=== PATIENT | female | born 2005 | race Hispanic/Latino ===

== ENCOUNTER 2024-07-13 19:08 | Emergency (ER) | payer SELFPAY ==
[~2024-07-13] VITALS: Ht 157.5 cm; Wt 92.5 kg
--- NOTE | 2024-07-13 19:38 | ERN ---
ED Note History of Present Illness Stated Complaint: YEAST INFECTION Time Seen by MD: 19:21 Time Seen by Midlevel: 19:21 Dictation: The patient is a 18-year-old female with no past medical history who presents to the emergency department with vaginal bleeding associated with suprapubic abdominal pain onset yesterday. Patient reports that she was treating herself for yeast infection and taking antibiotics from [place]. Denies any . Reports last menstrual period was the end of May. Reports some nausea, denies vomiting or diarrhea, constipation., fevers. Allergies: Coded Allergies: No Known Allergies (Unverified Allergy, Unknown, 07/13/24) Past Medical History RN Note Reviewed/Agreed w/PFSH: Yes Review of System Dictation Constitutional: Negative for fever,chills, and weight loss Eyes: Negative for injury, pain,redness, and discharge ENT: Negative for injury,pain or swelling Cardiovascular: Negative for chest pain, palpitations, and edema Respiratory: Negative for shortness of breath, cough, and wheezing, Abdomen/GI: Negative for vomiting, diarrhea, and constipation positive for abdominal pain, nausea Back: Negative for injury and pain : Negative for injury, and discharge positive for vaginal bleeding MS/Extremity: Negative for injury and deformity Skin: Negative for rash, and discoloration Neuro: Negative for headache, weakness, numbness, tingling, and seizure Psych: Negative for suicide ideation, homicidal ideation, and hallucinations Initial Vital Sign VS Vital Signs Date Time Temp Pulse Resp B/P (MAP) Pulse Ox O2 Delivery O2 Flow Rate FiO2 07/13/24 19:50 98.2 89 20 100 Room Air Physical Exam Dictation Vital Signs reviewed General Appearance: Alert, oriented x 3, no acute distress, well developed, nourished. Head and Face: non-traumatic. Eyes: PERRL, pink conjunctivas, eyelid no trauma, anterior chamber with arcus senilis. Ears: Pinnas intact and no signs of trauma or erythema ear canals clear and no discharge TM no erythema Nose: No discharge, no bleeding. Oropharynx: Mouth normal, tongue pink. pharynx clear,no erythema, tonsils no exudates, no abscesses noted, mucous membrane moist Neck: Supple, non-tender, no thyromegaly, no masses, no JVD, no bruits Breast:Deferred Chest:No tenderness, no crepitus, no paradoxical movement, no retractions Lungs:Clear, well-ventilated, symmetric, no rales, no wheezing, no rhonchi, no stridor, good breath sounds bilaterally Heart: Regular rate, regular rhythm, no murmur, no gallops Vascular: no peripheral edema, Abdomen: Soft, positive bowel sounds, nondistended, no guarding, nontender, no rebound, no masses no hepatomegaly, no splenomegaly, no Whitman's sign, no hernias. Rectal: Deferred Genital: Scant vaginal bleeding in vaginal canal, no external wounds, no foreign objects, Neurological: Normal speech, motor function intact, sensory function intact Musculoskeletal: Neck nontender, full range of motion, back nontender, full range of motion, Extremities: nontender, full range of motion Skin: Color pink, dry, no turgor, no rash, no lacerations, no abrasions, no contusions. Lymphatic: Deferred Results (Laboratory/Radiology) Laboratory/Radiology Laboratory Tests Test 07/13/24 20:17 07/13/24 20:43 Urine Color YELLOW (YELLOW) Urine Appearance CLOUDY (CLEAR) H Urine pH 8.0 (5.0-8.0) Urine Specific [place] 1.026 (1.001-1.031) Urine Protein 20 mg/dL (NEGATIVE) H Urine Glucose (UA) NEGATIVE mg/dL (NEGATIVE) Urine Ketones NEGATIVE mg/dL (NEGATIVE) Urine Occult Blood LARGE (NEGATIVE) H Urine Nitrate NEGATIVE (NEGATIVE) Urine Bilirubin NEGATIVE mg/dL (NEGATIVE) Urine Urobilinogen 2.0 mg/dL (0.2-1.0) H Urine Leukocyte Esterase 500 Nuvia/uL (NEGATIVE) H Urine RBC TNTC /HPF (0-1) H Urine WBC 11-25 /HPF (0-1) H Urine Squamous Epithelial Cells FEW /HPF (0-2) Urine Bacteria RARE /HPF (None Seen) White Blood Count 6.7 K/uL (4.8-10.8) Red Blood Count 3.98 MIL/uL (4.00-5.50) L Hemoglobin 12.5 g/dL (12.0-16.0) Hematocrit 37.0 % (36-48) Mean Corpuscular Volume 93.0 fL (80-100) Mean Corpuscular Hemoglobin 31.4 pg (27.0-33.0) Mean Corpuscular Hemoglobin Concent 33.8 g/dL (32.0-36.0) Red Cell Distribution Width 13.0 % (11.0-15.5) Platelet Count 351 K/uL (130-400) Mean Platelet Volume 10.2 fL (7.5-10.5) Immature Granulocyte % (Auto) 0.1 % (0-1) Neutrophils (%) (Auto) 56.4 % (40.0-77.0) Lymphocytes (%) (Auto) 33.7 % (21.0-51.0) Monocytes (%) (Auto) 5.7 % (3.0-13.0) Eosinophils (%) (Auto) 3.4 % (0.0-8.0) Basophils (%) (Auto) 0.7 % (0.0-5.0) Neutrophils # (Auto) 3.8 K/uL (1.8-7.7) Lymphocytes # (Auto) 2.3 K/uL (1.0-4.8) Monocytes # (Auto) 0.4 K/uL (0.1-1.0) Eosinophils # (Auto) 0.23 K/uL (0.00-0.70) Basophils # (Auto) 0.05 K/uL (0.00-0.20) Absolute Immature Granulocyte (auto 0.01 K/uL (0-1) Nucleated Red Blood Cells 0.0 % (0.0-0.19) Sodium Level 142 mmol/L (136-145) Potassium Level 3.5 mmol/L (3.5-5.1) Chloride Level 106 mmol/L (101-111) Carbon Dioxide Level 31 mmol/L (21-32) Blood Urea Nitrogen 7 mg/dL (7-18) Creatinine 0.7 mg/dL (0.5-1.0) Glomerular Filtration Rate Calc 128 mL/min (>90) Random Glucose 91 mg/dL (70-105) Total Calcium 8.5 mg/dL (8.5-10.1) Serum Test, Qualitative NEGATIVE (NEGATIVE) REASON: vaginal bleeding ORDERING PHYSICIAN: MARGY KUMAR PROCEDURE: PELVCOMP - US PELVIC NON-OB COMP US PELVIC NON-OB COMP HISTORY: vaginal bleeding TECHNIQUE: Real-time pelvic ultrasound was performed. FINDINGS: Uterus measures 8.9 cm and endometrium measures 0.9 cm in thickness. Right ovary measures 2.4 cm and left ovary measures 1.8 cm. No free fluid was seen. IMPRESSION: No adnexal mass is seen. Labs Reviewed?: Yes ED Course ED Course Orders Procedure Category Date Status Time Cbc With Differential LAB 07/13/24 Complete 19:30 Urinalysis Profile LAB 07/13/24 Complete 19:30 Basic Metabolic Panel LAB 07/13/24 Complete 19:30 Acetaminophen 500mg PHA 07/13/24 Complete Tab (Tylenol 500mg T 19:30 Testing, LAB 07/13/24 Complete Serum Hcg 19:30 Culture Urine [id number] 07/13/24 In Process 20:48 Us Pelvic Non-Ob Comp US 07/13/24 Resulted 21:23 Ceftriaxone 1g Vial PHA 07/13/24 Complete (Rocephine 1g Inj) 21:30 Pelvic Exam Set Up CPOE 07/13/24 Transmitted (Er) 21:55 Ceftriaxone 1g Vial PHA 07/13/24 Complete (Rocephine 1g Inj) 22:30 Current Medications Medications (Trade) Dose Ordered Sig/Cheli Route PRN Reason Start Time Stop Time Status Last Admin Dose Admin Acetaminophen (TYLenol 500MG TAB) 1,000 mg ONCE ONCE PO 07/13/24 19:30 07/13/24 19:32 DC 07/13/24 22:11 Ceftriaxone Sodium (ROCEphine 1G INJ) 1 gm ONCE ONCE IM 07/13/24 22:30 07/13/24 22:31 DC 07/13/24 22:20 Ceftriaxone Sodium (ROCEphine 1G INJ) 1 gm ONCE ONCE IVPB 07/13/24 21:30 07/13/24 21:31 DC Vital Signs Date Time Temp Pulse Resp B/P (MAP) Pulse Ox O2 Delivery O2 Flow Rate FiO2 07/13/24 19:50 98.2 89 20 100 Room Air Medical Decision Making MDM The patient is a 18-year-old female with no past medical history who presents to the emergency department with vaginal bleeding associated with suprapubic abdominal pain onset yesterday. Patient reports that she was treating herself for yeast infection and taking antibiotics from [place]. Denies any . Reports last menstrual period was the end of May. Reports some nausea, denies vomiting or diarrhea, constipation., fevers. CBC showed no leukocytosis, no anemia, chemistry showed negative test, no electrolyte imbalance, urinalysis positive for leukocyte esterase. Patient was treated with the antibiotics. Pelvic exam was performed with nurse doug as radio television technical director. Small amount of bleeding noted. Patient reports not saturating any pads in the last hour. Patient instructed to follow up with OBGYN. Patient in no acute distress, patient instructed to return if severe bleeding, dizziness or syncope. Differential diagnosis: UTI, menstrual cycle, , electrolyte imbalance Need for hospitalization: Patient does not meet criteria for hospitalization. There are no social concerns with this patient. DX & DISP Disposition: Discharge Departure Impression: Primary Impression: Vaginal bleeding Additional Impression: UTI (urinary tract infection) Condition: Stable Scripts Nitrofurantoin Monohyd/M-Cryst (Macrobid 100 mg Capsule) 100 Mg Capsule 1 CAP PO BID for 5 Days, #10 CAP 0 Refills Prov: MARGY KUMAR 07/13/24 Additional Instructions: Please follow up with OBGYN as soon as possible. Please return to ER if symptoms worsen. Taking medications as prescribed FOLLOW-UP WITH PRIMARY CARE PROVIDER IN 1 TO 2 DAYS. TAKE MEDICATIONS DIRECTED HERE IN THE EMERGENCY ROOM. OKAY TO CONTINUE HOME MEDICATIONS UNLESS OTHERWISE DISCUSSED DURING YOUR VISIT IN THE EMERGENCY ROOM TODAY. RETURN TO YOUR NEAREST EMERGENCY ROOM IF SYMPTOMS WORSEN OR IF THERE IS NO IMPROVEMENT. CALL 911 IF YOU NEED IMMEDIATE ASSISTANCE. TAKE TYLENOL OR MOTRIN [id number] NEEDED AND IF NO CONTRAINDICATIONS ARE PRESENT. INCREASE ORAL HYDRATION. A WOUND CULTURE OR URINE CULTURE WAS ORDERED HERE IN THE EMERGENCY ROOM DEPARTMENT PLEASE FOLLOW-UP WITH PRIMARY CARE PROVIDER AND ADVISE THEM TO GET REPEAT PORTS FROM OUR FACILITY. IF YOU HAD ANY RAYMOND WRAP/SPLINTS THAT WERE APPLIED HERE, PLEASE DO NOT REMOVE THEM UNTIL YOU SEE YOUR PRIMARY CARE OR SPECIALTY. Referrals: SELF,REFERRAL (PCP) Time of Disposition: 22:39 I have reviewed the case, and I agree with, Diagnosis and Plan MARGY KUMAR Jul 13, 2024 19:38
[2024-07-13 20:41] LABS: APPEARANCE,URINE CLOUDY (CLEAR); BILIRUBIN,URINE NEGATIVE (NEGATIVE); COLOR,URINE YELLOW (YELLOW); GLUCOSE, URINE (UA) NEGATIVE (NEGATIVE); KETONES,URINE NEGATIVE (NEGATIVE); LEUKOCYTE ESTERASE ,URINE 500 Leu/uL (NEGATIVE); NITRATE,URINE NEGATIVE (NEGATIVE); OCCULT BLOOD,URINE LARGE (NEGATIVE); PROTEIN,URINE 20 mg/dL (NEGATIVE)
[2024-07-13 20:48] LABS: ADD UA MICROSCOPIC YES
[2024-07-13 20:50] LABS: BACTERIA,URINE RARE /HPF (None Seen); MUCUS,URINE RARE LPF (None Seen); RBC,URINE TNTC /HPF (0-1); SQUAMOUS EPITHELIAL CELL,UR FEW /HPF (0-2)
[2024-07-13 20:53] LABS: BASOPHILS # (AUTO) 0.05 K/uL (0.00-0.20); BASOPHILS % (AUTO) 0.7 % (0.0-5.0); EOSINOPHILS # (AUTO) 0.23 K/uL (0.00-0.70); EOSINOPHILS % (AUTO) 3.4 % (0.0-8.0); IMMATURE GRANULOCYTE ABSOLUTE 0.01 K/uL (0-1); LYMPHOCYTES # (AUTO) 2.3 K/uL (1.0-4.8); LYMPHOCYTES % (AUTO) 33.7 % (21.0-51.0); MEAN CORPUSCULAR HEMOGLOBIN 31.4 pg (27.0-33.0); MEAN CORPUSCULAR HGB CONC 33.8 g/dL (32.0-36.0); MONOCYTES # (AUTO) 0.4 K/uL (0.1-1.0); MONOCYTES % (AUTO) 5.7 % (3.0-13.0); NEUTROPHILS # (AUTO) 3.8 K/uL (1.8-7.7); NEUTROPHILS % (AUTO) 56.4 % (40.0-77.0); PLATELET COUNT (AUTO) 351 K/uL (130-400); RED BLOOD CELL COUNT(AUTO) 3.98 MIL/uL (4.00-5.50); WHITE BLOOD COUNT (AUTO) 6.7 K/uL (4.8-10.8)
[2024-07-13 21:01] LABS: CREATININE 0.7 mg/dL (0.5-1.0); POTASSIUM 3.5 mmol/L (3.5-5.1)
--- NOTE | 2024-07-13 21:52 | HMCIMG ---
US PELVIC NON-OB COMP HISTORY: vaginal bleeding TECHNIQUE: Real-time pelvic ultrasound was performed. FINDINGS: Uterus measures 8.9 cm and endometrium measures 0.9 cm in thickness. Right ovary measures 2.4 cm and left ovary measures 1.8 cm. No free fluid was seen. IMPRESSION: No adnexal mass is seen.
[2024-07-13] MEDS: cefTRIAXone 1G VIAL IVPB ONE (22:10)
[2024-07-13] MEDS: acetaMINOPHEN 500 MG TABLET PO ONE (22:11)
[2024-07-13] MEDS: cefTRIAXone 1G VIAL IM ONE (22:20)
[2024-07-13] MEDS ORDERED: NITR100C4 PO (22:40)
[2024-07-13 23:12] VITALS: BP 120/57; PULSE 57; RESP 18; TEMP 98.4; O2SAT 98
== END 2024-07-13 23:16 | disposition home or self-care (01) ==
LOC: EDH 19:08
DX: N93.9 Abnormal uterine and vaginal bleeding, unspecified (principal); N39.0 Urinary tract infection, site not specified
CPT/HCPCS: 99285; 76856; 80048; 84703; 85025; 87086; 81001; 36415; 96372; J0696

== ENCOUNTER 2024-12-01 23:54 | Emergency (ER) | payer SELFPAY ==
[~2024-12-01] VITALS: Ht 165.1 cm; Wt 93.4 kg
[~2024-12-01 23:54] MED LIST: NITR100C4 PO
--- NOTE | 2024-12-02 00:28 | ERN ---
General Chief Complaint: Blister/Cold Sore Stated Complaint: C/O BLISTERS, SORES IN MOUTH Time Seen by MD: 00:04 Source: patient History of Present Illness Initial Comments Patient has had an upper respiratory tract infection for 2-3 days. She comes in because he has worsening symptoms with difficulty swallowing difficulty breathing. She also states that she saw a blister deep into her throat when she look into a mirror with a flashlight. Timing/Duration: 24 hours Allergies: Coded Allergies: No Known Allergies (Unverified Allergy, Unknown, 07/13/24) Home Meds Active Scripts Nitrofurantoin Monohyd/M-Cryst (Macrobid 100 mg Capsule) 100 Mg Capsule, 1 CAP PO BID for 5 Days, #10 CAP 0 Refills Prov:MARGY KUMAR PUBLIC AREA ATTENDANT 07/13/24 Past Medical History Past Medical History: No Pertinent History Past Surgical History: None Female( History) LMP: October 28, 2024 Constitutional: (+) chills, (+) fever EENTM: (+) eye pain, (+) blurred vision Respiratory: (+) cough, (+) wheezing Cardiovascular: (-) chest pain, (-) edema, (-) palpitations, (-) syncope, (-) dyspnea on exertion, (-) other documentation Gastrointestinal/Abdominal: (-) nausea, (-) vomiting, (-) diarrhea, (-) abdominal pain, (-) abdominal distention, (-) constipation, (-) rectal bleeding, (-) dark stool/melena, (-) other documentation Musculoskeletal: (-) Neck pain, (-) back pain, (-) Flank Pain, (-) joint pain, (-) joint swelling, (-) muscle pain, (-) muscle stiffness, (-) gout, (-) other documentation Skin: (-) laceration, (-) contusion, (-) abrasion, (-) abscess, (-) rash, (-) change in color, (-) change in hair, (-) change in nails, (-) diaphoresis, (-) dryness, (-) other documentation Physical Exam General Appearance: (+) no apparent distress General Appearance comment Patient appears normal however her voice is extremely soft and has a strained quality to it. Orientation: (+) alert, (+) oriented x 3 Eye: bilateral eye normal inspection, bilateral eye PERRL, bilateral eye EOMI Ear, Nose, Throat: (+) hearing grossly normal, (+) normal ENT inspection, (+) moist mucous membraine Ear, Nose, Throat Comment I looked in to the patient's mouth with an otoscope and I could not see any blisters anywhere. Even with a tongue retracted to either side and tongue depressed with a tongue depressor. The pharynx did appear normal I did not see much erythema or injection. Tonsils did not have erythema and did not have exudate. Neck: (+) normal inspection, (+) supple Respiratory: (+) chest non-tender, (+) lungs clear Heart: (+) regular Vascular: (+) no edema, (+) normal peripheral pulse Gastrointestinal: (+) soft, (+) non-tender, (+) bowel sound present Results Laboratory and Microbiology Lab and Micro Result Laboratory Tests Test 12/02/24 00:38 Influenza Type A Antigen Negative For Type A Influenza Type B Antigen Negative For Type B SARS-CoV-2 Antigen (Rapid) PRESUMPTIVE NEGATIVE Group A Streptococcus Rapid negative (NEGATIVE) MDM I will do nasal swabs throat swabs. Throat swabs are negative for COVID strep and influenza. I gave the patient some Robitussin and Tessalon Perle and she was able to eat drink. I will discharge her from the ED. ED Course Orders Procedure Category Date Status Time Covid19 (Sars Antigen LAB 12/02/24 Complete Rapid) 00:27 Influenza Type A & B, LAB 12/02/24 Complete Rapid 00:27 Rapid (Group A Strep) LAB 12/02/24 Complete 00:27 Guaifenesin-Dm PHA 12/02/24 Complete 200/20mg 10ml 01:30 Benzonatate 100 Mg PHA 12/02/24 Complete Capsule (Tessalon 100 01:30 Current Medications Medications (Trade) Dose Ordered Sig/Cheli Route PRN Reason Start Time Stop Time Status Last Admin Dose Admin Benzonatate (Tessalon 100mg Caps) 100 mg ONCE ONCE PO 12/02/24 01:30 12/02/24 01:31 DC 12/02/24 01:24 Guaifenesin/ Dextromethorphan (RobiTUSSin DM 200/20MG 10ML) 15 ml ONCE ONCE PO 12/02/24 01:30 12/02/24 01:31 DC 12/02/24 01:25 Vital Signs Date Time Temp Pulse Resp B/P (MAP) Pulse Ox O2 Delivery O2 Flow Rate FiO2 12/02/24 02:04 80 15 130/62 99 Room Air* 0 21 12/02/24 00:42 98.1 76 16 133/65 98 Room Air* 0 21 12/01/24 23:56 98.8 75 20 124/71 100 Room Air DX & DISP Disposition: Discharge Departure Impression: Primary Impression: URTI (acute upper respiratory infection) Condition: Stable Scripts Benzonatate (Tessalon Perles) 100 Mg Cap 100 MG PO QIDP PRN for cough for 5 Days, #20 CAP Prov: GABRIELLE BAUTISTA MD 12/02/24 Additional Instructions: You have an upper respiratory tract infection. It should resolve on its own. For throat pain you can take [id number] Robitussin or DayQuil or NyQuil. I have sent to your pharmacy a prescription for Tessalon Perles that also help with the cough. The most important thing is to stay hydrated. Please return if your symptoms do not improve in a week or so. Remember it is more important to stay hydrated then to be able to eat full meals, as long as you do not entero state of complete inability to eat. Referrals: SELF,REFERRAL (PCP) GABRIELLE BAUTISTA MD Dec 02, 2024 00:28
[2024-12-02 01:10] LABS: RAPID GROUP A STREP negative (NEGATIVE)
[2024-12-02 01:11] LABS: INFLUENZA TYPE A Negative For Type A (NEGATIVE); INFLUENZA TYPE B Negative For Type B (NEGATIVE)
[2024-12-02 01:12] LABS: COVID19 (SARS ANTIGEN RAPID) PRESUMPTIVE NEGATIVE (NEGATIVE)
[2024-12-02] MEDS: BENZONATATE 100 MG CAPSULE PO ONE (01:24)
[2024-12-02] MEDS: guaiFENesin-DM 200/20MG 10ML PO ONE (01:25)
[2024-12-02] MEDS ORDERED: BENZ-39 PO (02:19)
[2024-12-02 02:33] VITALS: BP 132/66; PULSE 75; RESP 16; TEMP 98; O2SAT 99
== END 2024-12-02 02:35 | disposition home or self-care (01) ==
LOC: EDH 23:54
DX: J06.9 Acute upper respiratory infection, unspecified (principal); Z20.822 Contact with and (suspected) exposure to COVID-19
CPT/HCPCS: 87426; 87804; 87880; 99283